=== PATIENT | male | born 1960 | race African-American/Black ===

== ENCOUNTER 2020-01-10 16:35 | Emergency (ER) | payer MEDICARE, OTHER ==
[~2020-01-10] VITALS: Ht 177.8 cm; Wt 104.3 kg
--- NOTE | 2020-01-10 16:42 | NUR ---
came in for cough, congeston, and chills x 1 month, to er 3, hooked to monitor, changedto hosp gown, warm blanket provided, awaiting md lazo
--- NOTE | 2020-01-10 17:00 | NUR ---
cole day at bedside
[2020-01-10 17:29] LABS: BASOPHILS # (AUTO) 0.1 /CMM (0.0-0.2); BASOPHILS % (AUTO) 0.5 % (0.0-2.0); EOSINOPHILS % (AUTO) 1.8 % (0.0-6.0); HEMATOCRIT 44 % (39-51); HEMOGLOBIN 14.6 g/dL (13.5-17.5); LYMPHOCYTES # (AUTO) 2.9 /CMM (0.8-4.8); LYMPHOCYTES % (AUTO) 24.2 % (20.0-44.0); MEAN CORPUSCULAR HGB CONC 33 g/dl (31.0-36.0); MEAN CORPUSCULAR VOLUME 87 fL (80-96); MONOCYTES # (AUTO) 1.2 /CMM (0.1-1.30); MONOCYTES % (AUTO) 9.9 % (2.0-12.0); NEUTROPHILS # (AUTO) 7.5 /CMM (1.8-8.9); NEUTROPHILS % (AUTO) 63.6 % (43.0-81.0); PLATELET COUNT (AUTO) 328 /CMM (150-450); RED BLOOD CELL COUNT(AUTO) 5.07 MIL/uL (4.5-6.0); WHITE BLOOD COUNT (AUTO) 11.8 K/uL (4.3-11.0)
[2020-01-10] MEDS ORDERED: ACETAMINOPHEN ES 500 MG TABLET ONE (17:29)
[2020-01-10] MEDS ORDERED: ACETAMINOPHEN 325 MG TABLET PO ONE (17:30)
[2020-01-10 17:37] LABS: CALCIUM, SERUM 8.9 mg/dL (8.5-10.1); CREATININE 1.3 mg/dL (0.6-1.3); POTASSIUM 4.4 mmol/L (3.5-5.1)
[2020-01-10] MEDS ORDERED: AZITHROMYCIN 250 MG TABLET ONE (18:28)
[2020-01-10] MEDS ORDERED: AZITHROMYCIN 250 MG TABLET PO ONE (18:30)
--- NOTE | 2020-01-10 18:31 | NUR ---
IV removed. Catheter intact and site benign. Pressure and 4x4 applied to site. No bleeding noted.Patient discharged to home in stable condition. Written and verbal after care instructions given. Patient verbalizes understanding of instruction.
[2020-01-10 18:34] VITALS: BP 131/84
== END 2020-01-10 18:34 | disposition home or self-care (01) ==
LOC: ER 16:38
DX: J20.9 Acute bronchitis, unspecified (principal); F17.210 Nicotine dependence, cigarettes, uncomplicated; R94.31 Abnormal electrocardiogram [ECG] [EKG]
CPT/HCPCS: 36415; 71045-TC; 80048-TC; 83880; 84484-TC; 85025-TC